=== PATIENT | female | born 1955 | race Caucasian/White ===

== ENCOUNTER 2023-01-31 20:43 | Emergency (ER) | payer OTHER ==
[2023-01-31 21:51] LABS: Bilirubin Negative (Negative); Blood, Urine Negative (Negative); CAUTI Indications for Culture Dysuria,urgency,freq; Clarity Clear (Clear); Glucose, Urine (Dipstick) Negative (Negative); Ketone, Urine 15 mg/dL (Negative); Leukocyte Negative (Negative); Nitrite Negative (Negative); Protein, Urine (Dipstick) Negative (Neg-Trace); Urobilinogen 0.2 mg/dL (Less than 2); pH, Urine 5.5 (5.0-9.0)
[2023-01-31 21:55] LABS: RBC/HPF None Seen HPF (0-3); WBC/HPF None Seen HPF (0-3)
[2023-01-31 21:56] LABS: Bacteria/HPF None Seen HPF (None Seen); Squamous Epithelial None Seen HPF (0-3)
[2023-01-31 21:57] LABS: Urine Culture Reflex No No
== END 2023-01-31 22:50 | disposition home or self-care (01) ==
LOC: NAV ERS 20:43
DX: R33.9 Retention of urine, unspecified (principal); Z48.815 Encounter for surgical aftercare following surgery on the digestive system; E11.9 Type 2 diabetes mellitus without complications
CPT/HCPCS: 51702; 51798; 81001